=== PATIENT | male | born 1970 | race Caucasian/White ===

== ENCOUNTER 2018-11-26 15:06 | Inpatient (IN) | payer OTHER ==
[~2018-11-26] VITALS: Ht 177.8 cm; Wt 116.4 kg
[2018-11-26] MEDS ORDERED: SODIUM CHLORIDE 0.9% 1000ML 1,000 ML IV STA (15:59)
[2018-11-26] MEDS ORDERED: KETOROLAC TROMETHAMINE 30 MG/ML VIAL IV ONE (16:15)
--- NOTE | 2018-11-26 16:53 | Diagnostic Imaging Report ---
EXAM: Right upper quadrant abdominal ultrasound INDICATION: Right upper quadrant pain COMPARISON: None. TECHNIQUE: Transverse and longitudinal images of the right upper quadrant abdomen were obtained FINDINGS: Exam is somewhat limited by overlying bowel gas as well as body habitus. Liver: Size: 16.4 cm in the right midclavicular line Appearance: Increased echogenicity, smooth contour Mass: No focal masses Gallbladder: No distention, pericholecystic fluid, wall thickening, or reported sonographic Tello's sign. Gallbladder wall measures 0.2 cm. There is a 1.1 cm stone in the gallbladder neck. Bile Ducts: Intrahepatic Ducts: No dilatation Extrahepatic Ducts: Common bile duct measures 0.5 cm, no dilatation Pancreas: Limited visualization due to overlying bowel gas. Kidney: The right kidney measures cm without evidence of hydronephrosis or stone. Vessels: Aorta: Limited visualization due to overlying bowel gas. Inferior Vena Cava: Limited visualization due to overlying bowel gas. Main Portal Vein: 1.3 cm, normal size with hepatopetal flow. Free Fluid: No evidence of ascites. IMPRESSION: Somewhat limited examination due to overlying bowel gas as well as body habitus. Hepatomegaly with hepatic steatosis. Cholelithiasis without sonographic evidence of cholecystitis. Signed by: Dr. Carly Salazar MD on 11/26/2018 4:50 PM
[2018-11-26 17:25] LABS: BASOPHILS # (AUTO) 0.1 (0.0-0.1); BASOPHILS % 0.4 % (0.0-1.0); EOSINOPHILS # (AUTO) 0.2 (0.0-0.4); EOSINOPHILS % 0.8 % (0.0-6.0); HEMATOCRIT 47.2 % (38.2-49.6); HEMOGLOBIN 15.4 g/dL (14.0-18.0); LYMPHOCYTES # (AUTO) 3.9 (1.0-3.2); MEAN CORPUSCULAR HEMOGLOBIN 25.8 pg (28-32); MEAN CORPUSCULAR HGB CONC 32.6 g/dL (31-35); MEAN CORPUSCULAR VOLUME 79.1 fL (81-99); MONOCYTES # (AUTO) 1.6 (0.2-0.8); MONOCYTES % 8.7 % (4.4-11.3); NEUTROPHILS # (AUTO) 12.7 (2.1-6.9); NEUTROPHILS % 68.6 % (38.7-80.0); PLATELET COUNT 300 x10e3/uL (140-360); RED BLOOD COUNT 5.97 x10e6/uL (4.3-5.7); RED CELL DISTRIBUTION WIDTH 13.9 % (11.7-14.4)
[2018-11-26 17:35] LABS: BILIRUBIN,URINE NEGATIVE (NEGATIVE); CLARITY,URINE SL CLOUDY (CLEAR); COLOR,URINE YELLOW (YELLOW); KETONES,URINE NEGATIVE (NEGATIVE); LEUKOCYTE ESTERASE ,URINE NEGATIVE (NEGATIVE); NITRITE,URINE NEGATIVE (NEGATIVE); PROTEIN,URINE DIPSTICK 1+ (NEGATIVE); URINE UROBILINOGEN 0.2 mg/dL (0.2 - 1)
[2018-11-26 17:49] LABS: ALANINE AMINOTRANSFERASE 60 IU/L (0-55); ALBUMIN 3.5 g/dL (3.5-5.0); ALBUMIN/GLOBULIN RATIO 0.8 (0.8-2.0); ALKALINE PHOSPHATASE 82 IU/L (40-150); AMYLASE 43 U/L (25-125); ANION GAP 16.2 mmol/L (8-16); BLOOD UREA NITROGEN 11 mg/dL (7-26); BUN/CREATININE RATIO 14 (6-25); CARBON DIOXIDE 23 mmol/L (22-29); CHLORIDE 100 mmol/L (98-107); CREATININE, SERUM 0.79 mg/dL (0.72-1.25); EST GLOMERULAR FILTRATION RATE > 60 ML/MIN (60-); GLUCOSE 107 mg/dL (74-118); LIPASE 23 U/L (8-78); POTASSIUM 3.2 mmol/L (3.5-5.1); SODIUM 136 mmol/L (136-145)
[2018-11-26 17:54] LABS: EPITHELIAL CELLS,URINE RARE /LPF
[2018-11-26 17:55] LABS: MUCUS,URINE RARE (RARE)
--- NOTE | 2018-11-26 19:09 | NUR ---
IVF BOLUS INFUSING WITH NO PROBLEM.
[2018-11-26] MEDS ORDERED: PIPER-TAZ 3.375 GM 50 ML IV SCH (19:21)
[2018-11-26] MEDS ORDERED: HYDROMORPHONE 1MG/1ML INJ IV PRN (19:30)
[2018-11-26] MEDS ORDERED: ONDANSETRON HCL INJ 2MG/ML 2ML 2 MG/ML VIAL IV PRN (19:30)
[2018-11-26] MEDS ORDERED: HYDROMORPHONE 2MG/ML 2 MG/ML ML IV PRN (19:30)
--- NOTE | 2018-11-26 19:48 | Diagnostic Imaging Report ---
EXAM: CT Abdomen and Pelvis WITH contrast INDICATION: ^R/O APPENDICITIS iv CONTRAST ONLY PLEASE COMPARISON: None. TECHNIQUE: Abdomen and pelvis were scanned utilizing a multidetector helical scanner from the lung base to the pubic symphysis after administration of IV contrast. Coronal and sagittal reformations were obtained. Routine protocol was performed. Scan was performed when during portal venous phase. IV CONTRAST: 100 mL of Isovue 370 ORAL CONTRAST: Water COMPLICATIONS: None RADIATION DOSE: Total DLP: 888.64 mGy*cm Estimated effective dose: (DLP x 0.015 x size factor) mSv CTDIvol has been reviewed. It is below the limits set by the Radiation Protocol Committee (RPC). Dose modulation, iterative reconstruction, and/or weight based adjustment of the mA/kV was utilized to reduce the radiation dose to as low as reasonably achievable. FINDINGS: LINES and TUBES: None. LOWER THORAX: Unremarkable HEPATOBILIARY: The liver is diffuse hypodense compared to the spleen, consistent with diffuse hepatic diffuse hepatic steatosis. No focal hepatic lesions. No biliary ductal dilation. GALLBLADDER: No radio-opaque stones or sludge. No wall thickening. SPLEEN: No splenomegaly. PANCREAS: No focal masses or ductal dilatation. ADRENALS: No adrenal nodules KIDNEYS/URETERS: Kidneys enhance symmetrically. No hydronephrosis. No cystic or solid mass lesions. No stones. GI TRACT: Small sliding hernia. No abnormal distention, wall thickening, or evidence of bowel obstruction. The appendix is distended measuring up to 1.3 cm with wall thickening. The tip of the appendix is relatively normal in appearance. However, at the base of the appendix the wall is indistinct. There is foci of extraluminal air. No free fluid. Associated surrounding inflammatory changes. PELVIC ORGANS/BLADDER: Unremarkable. LYMPH NODES: Multiple small reactive lymph nodes in the right lower quadrant mesentery extending to the root of the mesentery. VESSELS: Unremarkable. PERITONEUM / RETROPERITONEUM: No free air or fluid. BONES: Unremarkable. Posterior disc osteophyte at L5-S1. SOFT TISSUES: Unremarkable. IMPRESSION: Findings consistent with perforated appendicitis. Surrounding phlegmon without free fluid. Results were discussed with Dr. Grey by Dr. Scanlon on 11/26/2017 7:42 PM. Signed by: Dr. Chris Scanlon M.D. on 11/26/2018 7:45 PM
--- OUTSIDE RECORDS SUMMARY | 2018-11-26 19:59 | XMS REPORT ---
Author Author [facility] Address Unknown Phone Unavailable Care Team Providers Care Atmospheric Chemist Name Role Phone Herman GARY Unavailable Unavailable Problems This patient has no known problems. Allergies, Adverse Reactions, Alerts This patient has no known allergies or adverse reactions. Medications This patient has no known medications. Results Test Description Test Time Test Comments Text Results Atomic Results Result Comments CT ABDOMEN/PELVIS W 2018-11-26 19:38:00 [place] [address] Patient Name: JULIO CÉSAR QUINN MR #: [id number] : 1970 Age/Sex: 48/M Req #: [id number] [facility] Physician: Ordered by: LAURA GARY MD Report #: [id number] Location: ER Room/Bed: Procedure: [id number] CT/CT ABDOMEN/PELVIS W Exam Date: 11/26/18 Exam Time: 1920 REPORT STATUS: Signed EXAM: CT Abdomen and Pelvis WITH contrast IN DICATION: R/O APPENDICITIS iv CONTRAST ONLY PLEASE COMPARISON: None. TECHNIQUE: Abdomen and pelvis were scanned utilizing a multidetector helical scanner from the lung base to the pubic symphysis after administration of IV contrast. Coronal and sagittal reformations were obtained. Routine protocol was performed. Scan was performed when during portal venous phase. IV CONTRAST: 100 mL of Isovue 370 ORAL CONTRAST: Water COMPLICATIONS: None RADIATION DOSE: Total DLP: 888.64 mGy*cm Estimated effective dose: (DLP x 0.015 x size factor) mSv CTDIvol has been reviewed. It is below the limits set by the Radiation Protocol Committee (RPC). Dose modulation, iterative reconstruction, and/or weight based adjustment of the mA/kV was utilized to reduce the radiation dose to as low as reasonably achievable. FINDINGS: LINES and TUBES: None. LOWER THORAX: Unremarkable HEPATOBILIARY: The liver is diffuse hypodense compared to the spleen, consistent with diffuse hepatic diffuse hepatic steatosis. No focal hepatic lesions. No biliary ductal dilation. GALLBLADDER: No radio-opaque stones or sludge. No wall thickening. SPLEEN: No splenomegaly. PANCREAS: No focal masses or ductal dilatation. ADRENALS: No adrenal nodules KIDNEYS/URETERS: Kidneys enhance symmetrically. No hydronephrosis. No cystic or solid mass lesions. No stones. GI TRACT: Small sliding hernia. No abnormal distention, wall thickening, or evidence of bowel obstruction. The appendix is distended measuring up to 1.3 cm with wall thickening. The tip of the appendix is relatively normal in appearance. However, at the base of the appendix the wall is indistinct. There is foci of extraluminal air. No free fluid. Associated surrounding inflammatory changes. PELVIC ORGANS/BLADDER: Unremarkable. LYMPH NODES: Multiple small reactive lymph nodes in the right lower quadrant mesentery extending to the root of the mesentery. VESSELS: Unremarkable. PERITONEUM / RETROPERITONEUM: No free air or fluid. BONES: Unremarkable. Posterior disc osteophyte at L5-S1. SOFT TISSUES: Unremarkable. IMPRESSION: Findings consistent with perforated appendicitis. Surrounding phlegmon without free fluid. Results were discussed with Dr. Grey by Dr. Reza on 11/26/2017 7:42 PM. Signed by: Dr. Keith Reza M.D. on 11/26/2018 7:45 PM Dictated By: KEITH REZA MD 44 Transcribed By: FRANCISCO JAVIER on 11/26/181944 COPY TO: LAURA GARY MD GALLBLADDER 2018-11-26 16:47:00 [place] [address] Patient Name: JULIO CÉSAR QUINN MR #: [id number] : 1970 Age/Sex: 48/[id number] Req #: [id number] Adm Physician: Ordered by: LAURA GARY MD Report #: [id number] Location: ER Room/Bed: Procedure: [id number] US/US GALLBLADDER Exam Date: 11/26/18 Exam Time: 1608 REPORT STATUS: Signed EXAM: Right upper quadrant abdominal ultrasound INDICATION: Right upper quadrant pain COMPARISON: None. TECHNIQUE: Transverse and longitudinal images of the right upper quadrant abdomen were obtained FINDINGS: Exam is somewhat limited by overlying bowel gas as well as body habitus. Liver: Size: 16.4 cm in the right midclavicular line Appearance: Increased echogenicity, smooth contour Mass: No focal masses Gallbladder: No distention, pericholecystic fluid, wall thickening, or reported sonographic Tello's sign. Gallbladder wall measures 0.2 cm. There is a 1.1 cm stone in the gallbladder neck. Bile Ducts: Intrahepatic Ducts: No dilatation Extrahepatic Ducts: Common bile duct measures 0.5 cm, no dilatation Pancreas: Limited visualization due to overlying bowel gas. Kidney: The right kidney measures cm without evidence of hydronephrosis or stone. Vessels: Aorta: Limited visualization due to overlying bowel gas. Inferior Vena Cava: Limited visualization due to overlying bowel gas. Main Portal Vein: 1.3 cm, normal size with hepatopetal flow. Free Fluid: No evidence of ascites. IMPRESSION: Somewhat limited examination due to overlying bowel gas as well as body habitus. Hepatomegaly with hepatic steatosis. Cholelithiasis without sonographic evidence of cholecystitis. Signed by: Dr. Gia Mariscal MD on 11/26/2018 4:50 PM Dictated By: GIA MARISCAL MD [id number] Transcribed By: FRANCISCO JAVIER on 11/26/18 [id number] COPY TO: LAURA GARY MD
[2018-11-26] MEDS: D5.45%NS/KCL 20MEQ 1,000 ML IV SCH (20:26)
--- NOTE | 2018-11-26 20:30 | NUR ---
IVF/ABX INFUSING WITH NO PROBLEM.
--- NOTE | 2018-11-26 21:00 | NUR ---
DR. CUELLAR IN TO SPEAK WITH PT RE SX WITH DR. ARGUETA
--- NOTE | 2018-11-26 21:15 | NUR ---
DR. ARGUETA IS ON HIS WAY TO TAKE THE PT TO THE OR. CONSENT ON CHART
[2018-11-26] MEDS ORDERED: BACITRACIN 50,000 UNIT VIAL ONE (21:55)
[2018-11-26] MEDS ORDERED: BUPIVACAINE HCL 0.5% INJ 30 ML VIAL INJ ONE (21:55)
[2018-11-26] MEDS ORDERED: BUPIVACAINE 0.25%/EPI 30ML SDV INJ ONE (22:07)
[2018-11-26] MEDS ORDERED: SUGAMMADEX SODIUM 200 MG/2 ML VIAL IV ONE ×2 (22:16→22:40)
[2018-11-27] VITALS (7 sets, daily range): BP systolic 122–147; BP diastolic 71–90
[2018-11-27] MEDS ORDERED: HYDROMORPHONE 2MG/ML 2 MG/ML ML ONE (00:11)
[2018-11-27] MEDS ORDERED: SODIUM CHLORIDE 0.9% 50ML 50 ML ONE (00:16)
[2018-11-27] MEDS ORDERED: IOPAMIDOL 370 MG/ML 200 ML INFUS..BTL INJ ONE (00:16)
[2018-11-27] MEDS: PIPER-TAZ 3.375 GM 50 ML IV SCH ×4 (02:18→22:00)
--- NOTE | 2018-11-27 02:53 | Consultation ---
DATE OF CONSULTATION: 11/26/2018 CHIEF COMPLAINT: Abdominal pain. HISTORY OF PRESENT ILLNESS: The patient is a 48-year-old male with a 6-day history of pain in lower abdomen with nausea, vomiting, diarrhea, and subjective fevers. PAST MEDICAL HISTORY: Unremarkable. PAST SURGICAL HISTORY: No previous surgeries. ALLERGIES: HE IS ALLERGIC TO NO DRUGS. SOCIAL HABITS: The patient is a smoker, but denies alcohol abuse. REVIEW OF SYSTEMS: No cough, chest pain, or shortness of breath. PHYSICAL EXAMINATION: VITAL SIGNS: Stable. Low-grade temperature. GENERAL: The patient is awake and alert, in mild discomfort. HEENT: Sclerae nonicteric. NECK: Supple. LUNGS: Clear. HEART: Regular rate and rhythm. ABDOMEN: Soft with guarding tenderness and rebound right lower quadrant. LABORATORY DATA: White cell count is 18,000. CT scan showed perforated nicked appendix. ASSESSMENT: Perforated appendicitis. PLAN: Laparoscopic appendectomy. Attendant risks discussed. Kiko Vann MD DNPiter/MODPiter /[id number]
--- NOTE | 2018-11-27 03:09 | Operative Report ---
DATE OF PROCEDURE: 11/26/2018 SURGEON: Kiko Vann MD PREOPERATIVE DIAGNOSIS: Perforated appendicitis. POSTOPERATIVE DIAGNOSIS: Perforated appendicitis. OPERATIVE PROCEDURE: Laparoscopic appendectomy. POCKET SETTER LOCKSTITCH: None. ANESTHESIA: General endotracheal, Dr. Vann. INDICATION: A 48-year-old male with history of abdominal pain for [address] scan showing perforated appendicitis. The patient consented laparoscopic appendectomy. Attendant risks discussed. PROCEDURE FINDING: Perforated appendicitis at the neck. DESCRIPTION OF PROCEDURE: The patient brought to OR intubated, abdomen prepped with alcohol, and draped in sterile fashion. Infraumbilical incision was made and a 12 mm port inserted. Insufflation then began. Under direct vision, port site placed in the right upper quadrant and suprapubic region. The appendix was noted to be grossly inflamed and upon mobilization appendix it was noted to be perforated at the neck in the retrocecal region. With blunt dissection, the neck of the appendix was exposed and transected with Endo-EUSEBIO stapler blue load. The appendix was then mobilized and placed in an Endopouch and retrieved out of the peritoneal cavity. Operative field was then irrigated with copious saline solution. Hemostasis achieved. A 15-Greenlandic Vaughn drain placed in the retrocecal area and taken out through the suprapubic port site. All other ports removed under direct vision. Fascia closed with 0 Vicryl. Skin closed with subcuticular stitch. The patient was extubated, transported to recovery room. ESTIMATED BLOOD LOSS: 20 mL. Kiko Vann MD DNL/MODL /[id number]
[2018-11-27] MEDS: D5.45%NS/KCL 20MEQ 1,000 ML IV SCH ×3 (04:58→23:39)
[2018-11-27] MEDS: ONDANSETRON HCL INJ 2MG/ML 2ML 2 MG/ML VIAL IV PRN ×3 (05:47→18:40)
[2018-11-27] MEDS: HYDROMORPHONE 2MG/ML 2 MG/ML ML IV PRN ×3 (05:47→18:40)
[2018-11-27 07:58] LABS: BASOPHILS # (AUTO) 0.1 (0.0-0.1); BASOPHILS % 0.3 % (0.0-1.0); HEMATOCRIT 41.9 % (38.2-49.6); HEMOGLOBIN 13.7 g/dL (14.0-18.0); LYMPHOCYTES # (AUTO) 1.9 (1.0-3.2); LYMPHOCYTES % 8.7 % (18.0-39.1); MEAN CORPUSCULAR HEMOGLOBIN 26.2 pg (28-32); MEAN CORPUSCULAR HGB CONC 32.7 g/dL (31-35); MEAN CORPUSCULAR VOLUME 80.3 fL (81-99); MONOCYTES # (AUTO) 0.8 (0.2-0.8); MONOCYTES % 3.5 % (4.4-11.3); NEUTROPHILS # (AUTO) 19.3 (2.1-6.9); NEUTROPHILS % 86.9 % (38.7-80.0); PLATELET COUNT 295 x10e3/uL (140-360); RED BLOOD COUNT 5.22 x10e6/uL (4.3-5.7); RED CELL DISTRIBUTION WIDTH 14.1 % (11.7-14.4)
[2018-11-27 08:20] LABS: ALANINE AMINOTRANSFERASE 51 IU/L (0-55); ALBUMIN 2.9 g/dL (3.5-5.0); ALBUMIN/GLOBULIN RATIO 0.7 (0.8-2.0); ALKALINE PHOSPHATASE 73 IU/L (40-150); AMYLASE 28 U/L (25-125); ANION GAP 14.1 mmol/L (8-16); BLOOD UREA NITROGEN 9 mg/dL (7-26); BUN/CREATININE RATIO 11 (6-25); CALCIUM 8.3 mg/dL (8.4-10.2); CARBON DIOXIDE 23 mmol/L (22-29); CHLORIDE 106 mmol/L (98-107); CREATININE, SERUM 0.81 mg/dL (0.72-1.25); EST GLOMERULAR FILTRATION RATE > 60 ML/MIN (60-); GLUCOSE 146 mg/dL (74-118); LIPASE 9 U/L (8-78); POTASSIUM 4.1 mmol/L (3.5-5.1); SODIUM 139 mmol/L (136-145)
--- NOTE | 2018-11-27 08:35 | NUR ---
Pt received resting in bed. Alert and oriented x4 with saline lock #20 in left forearm receiving IV fluid as ordered. Pt with 3 trocar sites and CARLOS draining serous fluid. Oriented to staff and surroundings, encouraged to press call vick if help needed. All meds given as ordered. Call vick within reach. Emotional support given. Fall precautions maintained. Will monitor
[2018-11-27] MEDS ORDERED: HYDROCODONE/APAP 7.5MG-325MG 1 EA TAB PO PRN (11:45)
[2018-11-27] MEDS ORDERED: DESFLURANE 240 ML BTL INH ONE (14:55)
[2018-11-27] MEDS ORDERED: FENTANYL CITRATE/PF 100MCG/2 ML INJ ONE (14:55)
[2018-11-27] MEDS ORDERED: LIDOCAINE HCL 2% LOCAL INJ 5 ML SDV VIAL INJ ONE (14:55)
[2018-11-27] MEDS ORDERED: ACETAMINOPHEN 1000 MG/100 ML IV ONE (14:55)
[2018-11-27] MEDS ORDERED: LIDOCAINE HCL 2% JELLY 5 ML TUBE ONE (14:55)
[2018-11-27] MEDS ORDERED: CEFOXITIN SOD 1 GM VIAL ONE (14:55)
[2018-11-27] MEDS ORDERED: PROPOFOL IV EMULSION 10 MG/ML 20 ML VIAL ONE (14:55)
[2018-11-27] MEDS ORDERED: KETAMINE HCL INJ 50 MG/ML 10 ML VIAL ONE (14:55)
[2018-11-27] MEDS ORDERED: ROCURONIUM BROMIDE 10 MG/ML 5ML VIAL ONE (14:55)
[2018-11-27] MEDS ORDERED: DEXAMETHASONE SOD PHOS INJ 4 MG/ML VIAL ONE (14:55)
[2018-11-27] MEDS ORDERED: ONDANSETRON HCL INJ 2MG/ML 2ML 2 MG/ML VIAL ONE (14:55)
[2018-11-27] MEDS: ACETAMINOPHEN/CODEINE 300MG - 30MG TAB PO PRN (16:25)
--- NOTE | 2018-11-27 19:32 | NUR ---
Patient received lying in bed. AAO x 3. Patient had no complaints of pain. No signs of respiratory distress. CARLOS drain intact with serosanguineous drainage. Bed locked and in lowest position. Bed rails up x 2. Patient instructed to call for assistance when needed. Call light within reach.
--- NOTE | 2018-11-27 20:52 | NUR ---
Patient stated Dr Sravan Vann said he could eat something soft. Patient is currently on a "Clear liquid" diet. Dr. Sukh aLwson (covering for Dr. Vann) notified for clarification. Order received to advance diet from Clear liquid to Regular diet.
[2018-11-28] VITALS (10 sets, daily range): BP systolic 98–140; BP diastolic 57–76
[2018-11-28] MEDS: ACETAMINOPHEN/CODEINE 300MG - 30MG TAB PO PRN (01:38)
[2018-11-28 05:20] LABS: BASOPHILS # (AUTO) 0.1 (0.0-0.1); BASOPHILS % 0.6 % (0.0-1.0); EOSINOPHILS # (AUTO) 0.2 (0.0-0.4); EOSINOPHILS % 1.5 % (0.0-6.0); HEMOGLOBIN 12.9 g/dL (14.0-18.0); LYMPHOCYTES # (AUTO) 4.3 (1.0-3.2); LYMPHOCYTES % 30.5 % (18.0-39.1); MEAN CORPUSCULAR HEMOGLOBIN 26.4 pg (28-32); MEAN CORPUSCULAR HGB CONC 32.3 g/dL (31-35); MONOCYTES # (AUTO) 1.2 (0.2-0.8); MONOCYTES % 8.3 % (4.4-11.3); NEUTROPHILS # (AUTO) 8.3 (2.1-6.9); NEUTROPHILS % 58.6 % (38.7-80.0); PLATELET COUNT 273 x10e3/uL (140-360); RED BLOOD COUNT 4.88 x10e6/uL (4.3-5.7); RED CELL DISTRIBUTION WIDTH 14.1 % (11.7-14.4)
[2018-11-28 05:46] LABS: ANION GAP 11.8 mmol/L (8-16); BLOOD UREA NITROGEN 9 mg/dL (7-26); BUN/CREATININE RATIO 11 (6-25); CARBON DIOXIDE 25 mmol/L (22-29); CHLORIDE 105 mmol/L (98-107); EST GLOMERULAR FILTRATION RATE > 60 ML/MIN (60-); GLUCOSE 108 mg/dL (74-118); POTASSIUM 3.8 mmol/L (3.5-5.1); SODIUM 138 mmol/L (136-145)
[2018-11-28] MEDS: PIPER-TAZ 3.375 GM 50 ML IV SCH ×3 (06:00→21:44)
[2018-11-28] MEDS: HYDROMORPHONE 2MG/ML 2 MG/ML ML IV PRN ×3 (07:28→22:11)
--- NOTE | 2018-11-28 08:20 | NUR ---
Pt received resting in bed. Alert and oriented x4. Encouraged to ambulate around the floor. Emotional support given. All meds given as ordered. Call vick within reach. Will monitor
[2018-11-28] MEDS: D5.45%NS/KCL 20MEQ 1,000 ML IV SCH (09:39)
[2018-11-28] MEDS: ONDANSETRON HCL INJ 2MG/ML 2ML 2 MG/ML VIAL IV PRN (11:30)
[2018-11-28] MEDS: HYDROCODONE/APAP 10MG-325MG TAB PO PRN (16:27)
--- NOTE | 2018-11-28 19:27 | NUR ---
Patient received sitting up in bed. Family at bedside, AAO x 4. No acute distress noted . CARLOS drain in place. Fall prevention implemented. Call light within reach.
[2018-11-29] VITALS (8 sets, daily range): BP systolic 99–145; BP diastolic 54–78
[2018-11-29] MEDS: HYDROCODONE/APAP 10MG-325MG TAB PO PRN ×2 (04:45→12:45)
[2018-11-29] MEDS: PIPER-TAZ 3.375 GM 50 ML IV SCH ×3 (06:00→22:00)
--- NOTE | 2018-11-29 08:45 | NUR ---
Pt received resting in bed. Pt, , and daughter educated regarding CARLOS drain care. All verbalized understanding of teaching. Emotional support given. Call vick within reach. Will monitor
--- NOTE | 2018-11-29 19:30 | NUR ---
Patient received sitting up in bed. Family members at bedside. Patient is AAO x 4. No acute distress noted. Call light within reach.
[2018-11-29] MEDS: HYDROMORPHONE 2MG/ML 2 MG/ML ML IV PRN (20:04)
[2018-11-30 00:30] VITALS: BP 120/72
[2018-11-30 04:41] VITALS: BP 109/69
[2018-11-30] MEDS: PIPER-TAZ 3.375 GM 50 ML IV SCH (05:53)
--- NOTE | 2018-11-30 07:00 | NUR ---
SHIFT REPORT RECEIVED FROM NIGHT RN WHILE ROUNDING AT BEDSIDE. PT DENIES NEEDS AT THIS TIME.
[2018-11-30 08:20] VITALS: BP 138/77
[2018-11-30 09:00] VITALS: BP 138/77
[2018-11-30] MEDS: HYDROCODONE/APAP 10MG-325MG TAB PO PRN (10:50)
[2018-11-30] MEDS ORDERED: TRIMETHOPRIM/SULFAMETHOXAZOLE 160-800 MG TAB PO SCH (11:00)
[2018-11-30 12:00] VITALS: BP 125/76
--- NOTE | 2018-11-30 13:05 | NUR ---
OK FROM STANDPOINT OF DR. ARGUETA TO DISCHARGE HOME.
--- NOTE | 2018-11-30 13:29 | NUR ---
CARLOS DRAIN DISCONTINUED WITH ONLY 10 ML FLUID IN BULB. DRESSING PLACED. PT TOLERATED.
[2018-11-30] MEDS ORDERED: NORCO 5-325 TA1 EACH PO (13:35)
[2018-11-30] MEDS ORDERED: BACTRIM DS TAB1 EACH PO (13:36)
[2018-11-30 14:07] VITALS: BP 125/76
--- NOTE | 2018-12-01 11:15 | Discharge Summary ---
FINAL DIAGNOSIS: Acute perforated appendicitis. ELECTRICAL ENGINEER MEP: Dr. Vann PROCEDURES/STUDIES PERFORMED: 1. CT of the abdomen and pelvis. 2. Abdominal ultrasound. 3. Laparoscopic appendectomy. SECONDARY DIAGNOSIS: Cholelithiasis. HISTORY: Per [facility] and P. HOSPITAL COURSE: The patient underwent emergent laparoscopic appendectomy. The patient did well. Today is postop day#4. The patient is tolerating p.o. and has had a bowel movement. The patient received Zosyn and will go home on Bactrim. The patient will follow up with Dr. Vann within a week. The patient was seen and examined today. CONDITION ON DISCHARGE: Improved. DISCHARGE MEDICATIONS: Please see medication reconciliation form. Cherylching MD ALEX Hardin/SASCHA /[id number]
== END 2018-11-30 14:51 | disposition home or self-care (01) | DRG 853 ==
LOC: ER 15:06 → UNDOADMOB 19:54 → ERHOLD 19:54 → OR 22:21 → MED/SURG2 11-27 01:02
PROVIDERS: ADMIT Internal Medicine; ATTEND Internal Medicine
PROC: 0DTJ4ZZ Resection of Appendix, Percutaneous Endoscopic Approach (ICD-10-PCS; principal; 2018-11-26 22:41)
DX: A41.9 Sepsis, unspecified organism (principal); K35.32 Acute appendicitis with perforation, localized peritonitis, and gangrene, without abscess; K80.20 Calculus of gallbladder without cholecystitis without obstruction; E87.6 Hypokalemia
CPT/HCPCS: 36415; 74177; 76705; 80048; 80053; 81001; 82150; 82948; 83690; 85025; 88304; 96361; 99284; J0694; J1100; J1885; J2001; J2405; J2543; J7030; Q9967